=== PATIENT | female | born 1970 ===

== ENCOUNTER 2016-08-29 12:50 | Emergency (ER) | payer SELFPAY ==
[~2016-08-29 12:50] MED LIST: Calcium Chloride 1 GM/10 ML Abboject SYRINGE ONE; Dextrose 50% Abboject 50 ML SYRINGE ONE; EPINEPHrine 1 MG/10 ML Abboject SYRINGE ONE; Sodium Bicarb 50 MEQ/50 ML Abboject 8.4% SYRINGE ONE
[2016-08-29 13:20] LABS: #Basophils 0.3 thou/uL (0.0-0.2); #Eosinphils 0.1 thou/uL (0.0-0.7); #Lymphocytes 5.4 thou/uL (1.20-3.40); #Neutrophils 9.4 thou/uL (1.40-6.50); %Basophils 2.1 % (0.0-1.0); %Eosinophils 0.4 % (0.0-10.0); %Lymphocytes 33.4 % (21.0-51.0); %Monocytes 6.1 % (0.0-10.0); Mean Platelet Volume 5.8 fL (7.4-10.4); Red Blood Cell (RBC) Count 3.45 mill/uL (4.20-5.40)
[2016-08-29 13:21] LABS: BUN (Urea Nitrogen) 9 mg/dL (7.0-18.7); Calc. Creatinine Clearance 0 mL/min (70-130); Calcium 8.5 mg/dL (7.8-10.44); Chloride 103 mmol/L (98-107); Estimated GFR-MDRD 68; White Blood Cell (WBC) Count 16.2 thou/uL (4.8-10.8)
[2016-08-29 13:22] LABS: Carbon Dioxide Less than 8 mmol/L (22-29)
[2016-08-29 13:24] LABS: Troponin I 0.389 ng/mL (< 0.028)
--- NOTE | 2016-08-29 15:12 | ERRECORD ---
[facility] EMERGENCY RECORD HPI CARDIAC ARREST (13:56 JROB) CHIEF COMPLAINT: Patient presents for evaluation of cardiac arrest. HISTORIAN: Additional history obtained from EMS, 46 year old female was brought in by EMS with cardiorespiratory arrest. Family told EMS that she complained of abdominal pain at 11am. At 11:55 am EMS was called. On arrival they found family doing CPR with patient in bed. She was apneic and pulseless. Bottle of pain meds was found by bedside, 3 month supply with 90 pills, filled one month ago, only a few pills left. Monitor showed fine Vfib. They intubated without RSI meds, admistered shocks, resulting in asytole. They then gave Epi x 4, Amiodarone x 1, Narcan x 1, all with no change. Family told EMS that patient had history of CHF, lung disease. TIME COURSE: Approximate time of arrest, 12 noon. PRIOR TO ARRIVAL: Occurred at home, Initial cardiac rhythm ventricular fibrillation, Treatments in progress upon arrival to emergency department: Airway, IV access, established with intraosseous site, CPR in progress, Defibrillation, After defibrillation cardiac rhythm asystole, Cardiac rhythm on admission to emergency department asystole. CPR: Cardiopulmonary resuscitation indicated for cardiac arrest, Procedure performed by Attending, Cardiac rhythm prior to procedure: Asystole, Mechanical compression device utilized, Palpable pulse during CPR, Cardiac rhythm after procedure: Asystole. ASSOCIATED WITH: possible overdose. CRITICAL CARE: Time spent providing critical care to patient was 30-74 minutes, 75 minutes. ROS (14:02 JROB) NOTES: Systems not reviewed; unable. PAST MEDICAL HISTORY MEDICAL HISTORY: Notes: CHF, LUNG DISEASE, UNKNOWN POLYCYSTIC DISEASE. HISTORY UNCLEAR. (14:47 CKNU) FEMALE SURGICAL HISTORY: Patient's surgical history not available at time of evaluation. (14:47 CKNU) PSYCHIATRIC HISTORY: Notes: UNKNOWN. (14:47 CKNU) SOCIAL HISTORY: Social History includes UNKNOWN, Unknown. (14:47 CKNU) FAMILY HISTORY: Unknown family histroy. (14:47 CKNU) NOTES: Nursing records reviewed, Agree with nursing records, Unable to obtain complete past history due to patient's condition. (14:04 JROB) KNOWN ALLERGIES No recorded allergies CURRENT MEDICATIONS No recorded medications PHYSICAL EXAM (14:02 JROB) &a-1R&a+25V*p+0X*j4184A*c202B*c15G*c2P*p-0X&a-25V&a+1R Name: Luis Knowles : 1970 F46 MedRec: [id number] AcctNum: [id number] Prepared: TueAug 30, 2016 06:13 by Interface Page 1 of 3 D [facility] EMERGENCY RECORD CONSTITUTIONAL: Patient intubated, ventilations by bag valve mask. HEAD: Head exam included findings of head atraumatic. EYES: Pupils not equally round and reactive to light, Left pupil dilated, Left pupil fixed, Right pupil dilated, Right pupil fixed. ENT: orotracheally intubated. NECK: no jugular venous distention. RESPIRATORY CHEST: bilateral breath sounds with ventilation. CARDIOVASCULAR: no audible heart sounds, no palpable pulses. ABDOMEN FEMALE: no mass. UPPER EXTREMITY: no deformity. LOWER EXTREMITY: no deformity. NEURO: unresponsive. RADIOLOGYINTERPRETATION (14:06 JROB) CHEST: Films of the chest show, Other findings: ET tube in place, no pneumothorax, right lung field appears more prominent than left side. FITNESS CONSULTANT: Preliminary review of x-rays by, ED Physician. MEDICATION ADMINISTRATION SUMMARY Drug Name: Narcan, Dose Ordered: 2 mg, Route: IV Push, Status: Ordered, Time: 06:10 08/30/2016, Drug Name: *calcium chloride intravenous, Dose Ordered: 10 mL, Route: IV Push, Status: Ordered, Time: 06:09 08/30/2016, Drug Name: NovoLIN R, Dose Ordered: 10 units, Route: IV Push, Status: Ordered, Time: 06:08 08/30/2016, Drug Name: calcium chloride intravenous, Dose Ordered: 1000 mg, Route: IV Push, Status: Ordered, Time: 06:08 08/30/2016, Drug Name: dextrose 50 % in water (D50W), Dose Ordered: 25 (50 ml) g, Route: IV Push, Status: Ordered, Time: 06:08 08/30/2016, Drug Name: *sodium bicarbonate intravenous, Dose Ordered: 50 mEq, Route: IV Push, Status: Ordered, Time: 05:58 08/30/2016, Drug Name: *sodium bicarbonate intravenous, Dose Ordered: 50 mEq, Route: IV Push, Status: Ordered, Time: 05:57 08/30/2016, Drug Name: *EPINEPHrine injection, Dose Ordered: 1 mg, Route: IV Push, Status: Ordered, Time: 05:38 08/30/2016, *Additional information available in notes, Detailed record available in Medication Service section. DOCTOR NOTES TEXT: Patient was in arrest on arrival. Continued compressions while CXR and labs were performed. Attempted to address severe lab abnormalities but no improvement in status. Resuscitative efforts were withdrawn and patient was pronounced at at 1:20pm. I communicated the ER course and outcome with the patient's family, several of whom expressed severe dismay. Offered contacting other &a-1R&a+25V*p+0X*[id number]*c202B*c15G*c2P*p-0X&a-25V&a+1R Name: Luis Knowles : 1970 F46 MedRec: [id number] AcctNum: [id number] Prepared: TueAug 30, 2016 06:13 by Interface Page 2 of 3 pMD [facility] EMERGENCY RECORD support but the family declined. (14:10 JROB) Regarding etiology of arrest, unclear at this time. EMS suspected possible overuse of pain medications, no narcotic overdose is possible, but patient did not respond to Narcan. She complained of abdominal pain prior to arrest. Other possibilities include Acute [place], AAA with rupture, massive PE, as well as other possibilities not listed here. Justice of Peace is involved in this patient's case. She will be sent to a home. (15:06 JROB) PATIENT STATUS: Patient has . (14:10 JROB) DATA REVIEWED: Lab data reviewed, Xray data reviewed. (14:10 JROB) PROBLEM LIST No recorded problems DIAGNOSIS DIFFERENTIAL: Based on history, exam and ancillary studies if indicated: Impression: cardiac arrest, Impression: Metabolic, Impression: Myocardial infarction, Impression: sudden , Impression: Overdose, Diagnoses considered are not limited to those documented above. (15:04 JROB) FINAL: PRIMARY: CARDIAC ARREST CAUSE UNSPECIFIED, ADDITIONAL: ANEMIA UNSPECIFIED, HYPERKALEMIA, Metabolic Acidosis. (15:06 JROB) PRESCRIPTION No recorded prescriptions DISPOSITION PATIENT: Disposition Type: , Disposition: . (15:04 CKNU) Patient left the department. (16:28 CAWO) Guido: BENJYO=DORINA Bustamante, Ashley NEWELLNU=DORINA Sheikh, Bonnie LEWIS=MD David, Willy &a-1R&a+25V*p+0X*[id number]*c202B*c15G*c2P*p-0X&a-25V&a+1R Name: Luis Knowles : 1970 F46 MedRec: [id number] AcctNum: [id number] Prepared: TueAug 30, 2016 06:13 by Interface Page 3 of 3 pMD MTDD
--- NOTE | 2016-08-29 15:17 | PICIS ---
[facility] EMERGENCY RECORD TRIAGE ([place] Aug 29, 2016 13:09 REZE) PATIENT: NAME: Luis Knowles, AGE: 46, GENDER: female, : Tue1970, TIME OF GREET: [place] Aug 29, 2016 12:51, PREFERRED LANGUAGE: Albanian, ETHNICITY: Unable to Determine, ECODE BILLING MAP: [facility], Zip Code: [address], KG WEIGHT: 72.57, PHONE: , , , PERSON ID: [id number]. COMPLAINT: CODE. ADMISSION: URGENCY: 1 Critical, ADMISSION SOURCE: Home, TRANSPORT: AMBULANCE - [facility], BED: TRIAGE. PROVIDERS: TRIAGE NURSE: Amaris Blair RN. KNOWN ALLERGIES No recorded allergies CURRENT MEDICATIONS No recorded medications NURSING PROCEDURE: EXPIRATION CHART (16:15 REZE) EXPIRATION: Patient pronounced at 1320, Patient pronounced by Dr. Hernandez, Patient pronounced in emergency department, Family notified, Family here at hospital, Nursing supervisor mapping notified, Supervisor [employer] [place] [facility] [place], Law enforcement notified, at 1400, Person contacted: Curtis Whiting, Jamal of [facility], home notified, at 1425, home: [place] [facility], [facility], Person contacted: Answering service, Organ procurement agency notified, at 1439, Name of agency: [employer], Person contacted: Jenniffer- Ref #-[id number], states will call back in couple of hours, Autopsy requested, [employer]ic Curtis Whiting. REMOVAL FROM ED: Body removed to home, by [facility]. NURSING PROCEDURE: NURSE NOTES (14:47 CKNU) NURSES NOTES: Notes: See paper charting per Claude GlezDevelopment Expert. ORDER DETAILS Order Name: Basic Metabolic Panel, Status: Active, Time: 06:06 08/30/2016, User: JOSHUA, - Ordered for: MD Hernandez Joseph, - Entered by: MD Hernandez Joseph - [place] Aug 30, 2016 06:06, - Quantity: 1, Order Name: Cardiac Profile w/CKMB & Troponin - I, Status: Active, Time: 06:06 08/30/2016, User: JOSHUA, - Ordered for: MD Hernandez Joseph, - Entered by: MD Hernandez Joseph - [facility] Aug 30, 2016 06:06, - Quantity: 1, Order Name: CBC with Differential, Status: Active, Time: 06:06 &a-1R&a+25V*p+0X*l9595H*c202B*c15G*c2P*p-0X&a-25V&a+1R Name: Luis Knowles : 1970 F46 MedRec: [id number] AcctNum: [id number] Prepared: TueAug 30, 2016 06:13 by Interface Page 1 of 7 pMD [facility] EMERGENCY RECORD 08/30/2016, User: JOSHUA, - Ordered for: MD Hernandez Joseph, - Entered by: MD Hernandez Joseph - [facility] Aug 30, 2016 06:06, - Quantity: 1, Order Name: XR Chest 1 View Portable, Status: Active, Time: 06:07 08/30/2016, User: JOSHUA, - Ordered for: MD Hernnadez Joseph, - Entered by: MD Hernandez Joseph - [facility] Aug 30, 2016 06:07, - Quantity: 1. MEDICATION ADMINISTRATION SUMMARY Drug Name: Narcan, Dose Ordered: 2 mg, Route: IV Push, Status: Ordered, Time: 06:10 08/30/2016, Drug Name: *calcium chloride intravenous, Dose Ordered: 10 mL, Route: IV Push, Status: Ordered, Time: 06:09 08/30/2016, Drug Name: NovoLIN R, Dose Ordered: 10 units, Route: IV Push, Status: Ordered, Time: 06:08 08/30/2016, Drug Name: calcium chloride intravenous, Dose Ordered: 1000 mg, Route: IV Push, Status: Ordered, Time: 06:08 08/30/2016, Drug Name: dextrose 50 % in water (D50W), Dose Ordered: 25 (50 ml) g, Route: IV Push, Status: Ordered, Time: 06:08 08/30/2016, Drug Name: *sodium bicarbonate intravenous, Dose Ordered: 50 mEq, Route: IV Push, Status: Ordered, Time: 05:58 08/30/2016, Drug Name: *sodium bicarbonate intravenous, Dose Ordered: 50 mEq, Route: IV Push, Status: Ordered, Time: 05:57 08/30/2016, Drug Name: *EPINEPHrine injection, Dose Ordered: 1 mg, Route: IV Push, Status: Ordered, Time: 05:38 08/30/2016, *Additional information available in notes, Detailed record available in Medication Service section. MEDICATION SERVICE calcium chloride intravenous: Order: calcium chloride intravenous (calcium chloride) - Dose: 1000 mg : IV Push Schedule: Now Ordered by: Willy Hernandez MD Entered by: Willy Hernandez MD TueAug 30, 2016 06:08 . calcium chloride intravenous: Order: calcium chloride intravenous (calcium chloride) - Dose: 10 mL : IV Push Schedule: Now Notes: ordered 08/29@1311 Ordered by: Willy Hernandez MD Entered by: Katlyn Gardner RN TueAug 30, 2016 06:09 . dextrose 50 % in water (D50W): Order: dextrose 50 % in water (D50W) (dextrose 50 % in water) - Dose: 25 (50 ml) g : IV Push Schedule: Now Ordered by: Willy Hernandez MD Entered by: Willy Hernandez MD TueAug 30, 2016 06:08 . EPINEPHrine injection: Order: EPINEPHrine injection &a-1R&a+25V*p+0X*k6979N*c202B*c15G*c2P*p-0X&a-25V&a+1R Name: Luis Knowles : 1970 F46 MedRec: [id number] AcctNum: [id number] Prepared: TueAug 30, 2016 06:13 by Interface Page 2 of 7 [facility] EMERGENCY RECORD (epinephrine) - Dose: 1 mg : IV Push Schedule: Now Notes: ordered 08/29@1316 Ordered by: Willy Hernandez MD Entered by: Katlyn Gardner RN TueAug 30, 2016 05:38 , Co-signed by: Willy Hernandez MD TueAug 30, 2016 06:04, Co-signed by: Willy Hernandez MD TueAug 30, 2016 06:07. Narcan: Order: Narcan (naloxone HCl) - Dose: 2 mg : IV Push Schedule: Now Ordered by: Willy Hernandez MD Entered by: Willy Hernandez MD TueAug 30, 2016 06:10 . NovoLIN R: Order: NovoLIN R (insulin regular, human) - Dose: 10 units : IV Push Schedule: Now Ordered by: Willy Hernandez MD Entered by: Willy Hernandez MD [facility] Aug 30, 2016 06:08 . sodium bicarbonate intravenous: Order: sodium bicarbonate intravenous (sodium bicarbonate) - Dose: 50 mEq : IV Push Schedule: Now Notes: ordered 08/29 @1312 Ordered by: Willy Hernandez MD Entered by: Katlyn Gardner RN [facility] Aug 30, 2016 05:57 , Co-signed by: Willy Hernandez MD [facility] Aug 30, 2016 06:04, Co-signed by: Willy Hernandez MD [facility] Aug 30, 2016 06:05. sodium bicarbonate intravenous: Order: sodium bicarbonate intravenous (sodium bicarbonate) - Dose: 50 mEq : IV Push Schedule: Now Notes: ordered 08/29 @1316 Ordered by: Willy Hernandez MD Entered by: Katlyn Gardner RN [facility] Aug 30, 2016 05:58 , Co-signed by: Willy Hernandez MD [facility] Aug 30, 2016 06:04, Co-signed by: Willy Hernandez MD [facility] Aug 30, 2016 06:07. HPI CARDIAC ARREST (13:56 JROB) CHIEF COMPLAINT: Patient presents for evaluation of cardiac arrest. HISTORIAN: Additional history obtained from EMS, 46 year old female was brought in by EMS with cardiorespiratory arrest. Family told EMS that she complained of abdominal pain at 11am. At 11:55 am EMS was called. On arrival they found family doing CPR with patient in bed. She was apneic and pulseless. Bottle of pain meds was found by bedside, 3 month supply with 90 pills, filled one month ago, only a few pills left. Monitor showed fine Vfib. They intubated without RSI meds, admistered shocks, resulting in asytole. They then gave Epi x 4, Amiodarone x 1, Narcan x 1, all with no change. Family told EMS that patient had history of CHF, lung disease. TIME COURSE: Approximate time of arrest, 12 noon. PRIOR TO ARRIVAL: Occurred at home, Initial cardiac rhythm ventricular fibrillation, Treatments in progress upon arrival to emergency department: Airway, IV access, &a-1R&a+25V*p+0X*a7840W*c202B*c15G*c2P*p-0X&a-25V&a+1R Name: Luis Knowles : 1970 F46 MedRec: [id number] AcctNum: [id number] Prepared: TueAug 30, 2016 06:13 by Interface Page 3 of 7 pMD [facility] EMERGENCY RECORD established with intraosseous site, CPR in progress, Defibrillation, After defibrillation cardiac rhythm asystole, Cardiac rhythm on admission to emergency department asystole. CPR: Cardiopulmonary resuscitation indicated for cardiac arrest, Procedure performed by Attending, Cardiac rhythm prior to procedure: Asystole, Mechanical compression device utilized, Palpable pulse during CPR, Cardiac rhythm after procedure: Asystole. ASSOCIATED WITH: possible overdose. CRITICAL CARE: Time spent providing critical care to patient was 30-74 minutes, 75 minutes. ROS (14:02 JROB) NOTES: Systems not reviewed; unable. PAST MEDICAL HISTORY MEDICAL HISTORY: Notes: CHF, LUNG DISEASE, UNKNOWN POLYCYSTIC DISEASE. HISTORY UNCLEAR. (14:47 CKNU) FEMALE SURGICAL HISTORY: Patient's surgical history not available at time of evaluation. (14:47 CKNU) PSYCHIATRIC HISTORY: Notes: UNKNOWN. (14:47 CKNU) SOCIAL HISTORY: Social History includes UNKNOWN, Unknown. (14:47 CKNU) FAMILY HISTORY: Unknown family histroy. (14:47 CKNU) NOTES: Nursing records reviewed, Agree with nursing records, Unable to obtain complete past history due to patient's condition. (14:04 JROB) PHYSICAL EXAM (14:02 JROB) CONSTITUTIONAL: Patient intubated, ventilations by bag valve mask. HEAD: Head exam included findings of head atraumatic. EYES: Pupils not equally round and reactive to light, Left pupil dilated, Left pupil fixed, Right pupil dilated, Right pupil fixed. ENT: orotracheally intubated. NECK: no jugular venous distention. RESPIRATORY CHEST: bilateral breath sounds with ventilation. CARDIOVASCULAR: no audible heart sounds, no palpable pulses. ABDOMEN FEMALE: no mass. UPPER EXTREMITY: no deformity. LOWER EXTREMITY: no deformity. NEURO: unresponsive. LAB INTERPRETATION (14:05 JROB) INTERPRETATION: I reviewed the lab results, CBC abnormal, White blood cell count elevated, Hemoglobin decreased, Hematocrit decreased, Chemistry abnormal, Potassium elevated, Glucose decreased, Bicarbonate decreased, &a-1R&a+25V*p+0X*j6713M*c202B*c15G*c2P*p-0X&a-25V&a+1R Name: Luis Knowles : 1970 F46 MedRec: [id number] AcctNum: [id number] Prepared: TueAug 30, 2016 06:13 by Interface Page 4 of 7 pMD [facility] EMERGENCY RECORD Chemistry otherwise normal, Cardiac enzymes abnormal, CK-MB elevated, Troponin elevated. EVENTS TRANSFER: Triage to Emergency Triage. ([place] Aug 29, 2016 13:09 REZE) Emergency Triage to Emergency Room *TR1. (14:37 CKNU) Removed from Emergency Emergency Room *TR1. (16:28 CAWO) RADIOLOGYINTERPRETATION (14:06 JROB) CHEST: Films of the chest show, Other findings: ET tube in place, no pneumothorax, right lung field appears more prominent than left side. BEHAVIORAL HEALTH AIDE: Preliminary review of x-rays by, ED Physician. O2SAT INTERPRETATION (14:04 JROB) O2SAT: Single pulse oximetry, Oxygen saturation less than 80%, on 100%, Oxygen saturation interpretation: Hypoxic, Intervention required: Oxygen administration, Intervention required: airway management. DOCTOR NOTES TEXT: Patient was in arrest on arrival. Continued compressions while CXR and labs were performed. Attempted to address severe lab abnormalities but no improvement in status. Resuscitative efforts were withdrawn and patient was pronounced at at 1:20pm. I communicated the ER course and outcome with the patient's family, several of whom expressed severe dismay. Offered contacting other support but the family declined. (14:10 JROB) Regarding etiology of arrest, unclear at this time. EMS suspected possible overuse of pain medications, no narcotic overdose is possible, but patient did not respond to Narcan. She complained of abdominal pain prior to arrest. Other possibilities include Acute [place], AAA with rupture, massive PE, as well as other possibilities not listed here. Justice of Peace is involved in this patient's case. She will be sent to a home. (15:06 JROB) PATIENT STATUS: Patient has . (14:10 JROB) DATA REVIEWED: Lab data reviewed, Xray data reviewed. (14:10 JROB) CODE RECORDER (14:07 JROB) PREHOSPITAL: Patient in arrest on arrival to ED, cardiac, respiratory, Total length of downtime (minutes) 60. DRUGS: EPINEPHRINE, (mg) 1, given IV push, NALOXONE, (mg) 2, given IV push, Other medication given: D50 1 amp, Insulin 10 units, Calcium Chloride. CODE TERMINATION: Notes: Labs showed severe hyperkalemia, severe acidosis. Gave meds to address those issues with no improvement in status, no ROSC. Patient was pronounced at 1:20pm. &a-1R&a+25V*p+0X*i0145B*c202B*c15G*c2P*p-0X&a-25V&a+1R Name: Luis Knowles : 1970 F46 MedRec: [id number] AcctNum: [id number] Prepared: TueAug 30, 2016 06:13 by Interface Page 5 of 7 pMD [facility] EMERGENCY RECORD PROBLEM LIST No recorded problems DIAGNOSIS DIFFERENTIAL: Based on history, exam and ancillary studies if indicated: Impression: cardiac arrest, Impression: Metabolic, Impression: Myocardial infarction, Impression: sudden , Impression: Overdose, Diagnoses considered are not limited to those documented above. (15:04 JROB) FINAL: PRIMARY: CARDIAC ARREST CAUSE UNSPECIFIED, ADDITIONAL: ANEMIA UNSPECIFIED, HYPERKALEMIA, Metabolic Acidosis. (15:06 JROB) DISPOSITION PATIENT: Disposition Type: , Disposition: . (15:04 CKNU) Patient left the department. (16:28 CAWO) PRESCRIPTION No recorded prescriptions IMAGING AUTOPSY AUTHORIZATION: Image captured from scanner. (15:16 REZE) Image captured from scanner. (15:16 REZE) Image captured from scanner. (15:16 REZE) AUTOPSY ASSESSMENT: Image captured from scanner. (15:17 REZE) LIFE GIFT FORM: Image captured from scanner. (15:17 REZE) REPORT: Image captured from scanner. (16:16 REZE) RESUSCITATION RECORD: Image captured from scanner. (16:17 REZE) Image captured from scanner. (16:17 REZE) Image captured from scanner. (16:18 REZE) *SUPPLY CHARGE SHEET: Image captured from scanner. (16:19 REZE) ADMIN DIGITAL SIGNATURE: MD Hernandez Joseph. (15:06 JROB) MD Hernandez Joseph. (15:09 JROB) DORINA Blair, Amaris. (16:27 REZE) MD Hernandez Joseph. (TueAug 30, 2016 06:10 JROB) RESULTS (13:55 JROB) LABORATORY: Cardiac Profile w/CKMB & TropI Collection DT: [place] Aug 29, 2016 13:19, Critical Call CKMBM CALLED W/READ BACK , Critical Call Chem Troponin I CALLED W/ READ BACK , *CKMB 85.0 - *H ng/mL, Range (0-6.6), Critical value!, *Troponin I 0.389 - *H ng/mL, Range (< 0.028), Critical value! Reference Range , &a-1R&a+25V*p+0X*z6620B*c202B*c15G*c2P*p-0X&a-25V&a+1R Name: Luis Knowles : 1970 F46 MedRec: [id number] AcctNum: [id number] Prepared: TueAug 30, 2016 06:13 by Interface Page 6 of 7 pMD [facility] EMERGENCY RECORD 0.00 - 0.028 ng/mL Negative 0.029 - 0.29 , ng/mL Indeterminate Greater or Equal to 0.3 ng/mL Strongly suggests, PA . CBC with Differential Collection DT: [place] Aug 29, 2016 13:19, *White Blood Cell (WBC) Count 16.2 - H thou/uL, Range (4.8-10.8), CPR IN PROGRESS, *Red Blood Cell (RBC) Count 3.45 - L mill/uL, Range (4.20-5.40), *Hemoglobin 9.8 - L g/dL, Range (12.0-16.0), *Hematocrit 35.0 - L %, Range (36.0-47.0), *Mean Corpuscular Volume 101.0 - H fl, Range (81.0-99.0), Mean Corpuscular Hemoglobin 28.6 pg, Range (27.0-31.0), *Mean Corpuscular HGB CONC 28.2 - L g/dL, Range (32.0-36.0), *RBC Distribution Width 20.6 - H %, Range (11.5-14.5), Platelet Count 360 thou/uL, Range (130-400), *Mean Platelet Volume 5.8 - L fL, Range (7.4-10.4), %Neutrophils 58.0 %, Range (42.0-75.0), %Lymphocytes 33.4 %, Range (21.0-51.0), %Monocytes 6.1 %, Range (0.0-10.0), %Eosinophils 0.4 %, Range (0.0-10.0), *%Basophils 2.1 - H %, Range (0.0-1.0), *#Neutrophils 9.4 - H thou/uL, Range (1.40-6.50), *#Lymphocytes 5.4 - H thou/uL, Range (1.20-3.40), *#Monocytes 1.0 - H thou/uL, Range (0.11-0.59), #Eosinphils 0.1 thou/uL, Range (0.0-0.7), *#Basophils 0.3 - H thou/uL, Range (0.0-0.2). Basic Metabolic Panel Collection DT: [place] Aug 29, 2016 13:19, Critical Call Chemistry CALLED W/READ BACK , Refer to Critical Value designated by an *L or *H , Sodium 136 mmol/L, Range (136-145), *Potassium 10.2 - *H mmol/L, Range (3.5-5.1), CPR IN PROGRESS , Chloride 103 mmol/L, Range (98-107), *Carbon Dioxide Less than 8 - *L mmol/L, Range (22-29), BUN (Urea Nitrogen) 9 mg/dL, Range (7.0-18.7), Creatinine 0.89 mg/dL, Range (0.6-1.1), Estimated GFR-MDRD 68 , Reference Range for Estimated GFR: Greater than 90, mL/min/1.73 m2 NOTE: The MDRD equation has not been validated for use, with the elderly (over 70 years of age), women, patients with, serious comorbid condition or persons with extremes of body size, muscle, mass, or nutritional status. , *Glucose 69 - L mg/dL, Range (70-105), Calcium 8.5 mg/dL, Range (7.8-10.44). Guido: BRIT=DORINA Bustamante, Ashley YADAVU=DORINA Sheikh, Bonnie LEWIS=MD David, Willy TORRES=DORINA Blair, Amaris &a-1R&a+25V*p+0X*g2388Q*c202B*c15G*c2P*p-0X&a-25V&a+1R Name: Luis Knowles : 1970 F46 MedRec: [id number] AcctNum: [id number] Prepared: TueAug 30, 2016 06:13 by Interface Page 7 of 7 pMD MTDD
--- NOTE | 2016-08-30 08:14 | RAD ---
SUPINE CHEST: Date: 08/29/16 HISTORY: Cardiorespiratory arrest. FINDINGS: The lateral right chest is not included on this exam. Artifact from backboard is noted. There is opa cification of both lower lung lowe as seen on this study, which could represent infiltrate or atel ectasis. No pneumothorax. Heart and mediastinum appear unremarkable. ET tube is in place with tip ju st above the tone. IMPRESSION: Question infiltrate or edema in both mid and lower lungs, more prominent on the right. ET tube has t ip just above the tone. POS: [facility]
== END 2016-08-29 13:20 | disposition expired ==
LOC: NAV ERS 12:50 → EDBD 12:50 → NAV ERS 13:20
DX: I46.9 Cardiac arrest, cause unspecified (principal); D64.9 Anemia, unspecified; E87.5 Hyperkalemia; E87.2 Acidosis
CPT/HCPCS: 71010; 80048; 82553; 84484; 85025; 99291; 99292; J0171